=== PATIENT | male | born 1960 | race Two or more races ===

== ENCOUNTER 2018-07-25 13:15 | Inpatient (IN) | payer MEDICAID | END 2018-07-30 14:45 | disposition home or self-care (01) | LOC: ER 13:15 → WEST WING 07-26 00:38 → OVERFLOW 15:28 | PROC: 047L3Z1 Dilation of Left Femoral Artery using Drug-Coated Balloon, Percutaneous Approach (ICD-10-PCS; principal; 2018-07-29 12:25) | DX: L03.90 Cellulitis, unspecified (principal); E11.52 Type 2 diabetes mellitus with diabetic peripheral angiopathy with gangrene; E11.21 Type 2 diabetes mellitus with diabetic nephropathy; E44.0 Moderate protein-calorie malnutrition; E11.621 Type 2 diabetes mellitus with foot ulcer; I25.10 Atherosclerotic heart disease of native coronary artery without angina pectoris; Z95.5 Presence of coronary angioplasty implant and graft; Z87.891 Personal history of nicotine dependence; I10 Essential (primary) hypertension; Z89.511 Acquired absence of right leg below knee; Z89.412 Acquired absence of left great toe; N39.0 Urinary tract infection, site not specified ==

== ENCOUNTER 2018-09-10 23:38 | Inpatient (IN) | payer MEDICAID ==
[~2018-09-10] VITALS: Ht 167.6 cm; Wt 62.0 kg
[~2018-09-10 23:38] MED LIST: ASPI-378 PO; GLIP-115 PO; LISI2.5T47 PO; METF-370 PO; METO25TA5 PO
[2018-09-10] MEDS ORDERED: ACETAMINOPHEN 325 MG TAB PO ONE (23:51)
[2018-09-11] MEDS ORDERED: SODIUM CHLORIDE 0.9% 1,000 ML IVB ONE (00:32)
[2018-09-11 01:03] LABS: Urine Bacteria MOD /hpf (None Seen); Urine Blood 2+ /uL (Negative); Urine Hyaline Cast FEW /lpf (0 - 2); Urine Mucus FEW (None Seen); Urine Specific Gravity 1.014 (1.001-1.035); Urine WBC 3 /hpf (0 - 3)
[2018-09-11 02:01] LABS: Basophils # (auto) 0.1 uL; Basophils % (auto) 0.5 % (0.0-2.0); Eosinophils # (auto) 0 uL; Eosinophils % (auto) 0.1 % (0.0-7.0); Hematocrit 33.4 % (41.0-53.0); Hemoglobin 11.1 g/dL (13.5-17.5); Lymphocytes # (auto) 0.9 uL; Lymphocytes % (auto) 7.9 % (10.0-50.0); Mean Corpuscular Hemoglobin 28.4 pg (28.0-32.0); Mean Corpuscular Hgb Conc. 33.1 g/dL (32.0-36.0); Mean Corpuscular Volume 85.8 fL (80.0-100.0); Monocytes # (auto) 0.7 uL; Monocytes % (auto) 6.4 % (0.0-12.0); Neutrophils # (auto) 9.5 uL; Neutrophils % (auto) 85.1 % (37.0-80.0); Platelet Count (auto) 155 10^3/uL (140-450); Red Blood Cells 3.89 10^6/uL (4.5-5.90); Red Cell Distribution Width 16.5 % (11.8-14.3); White Blood Cell 11.2 10^3/uL (4.4-10.8)
[2018-09-11 02:13] LABS: Prothrombin Time 10.7 sec (9.27-12.13)
[2018-09-11 02:16] LABS: Albumin 2.8 g/dL (3.4-5.0); BUN/Creatinine Ratio 13.4; Calcium 8.2 mg/dL (8.5-10.1); Magnesium 2.1 mg/dL (1.6-2.6); Potassium 3.7 mmol/L (3.5-5.1)
[2018-09-11 02:19] LABS: Bilirubin, Total 0.4 mg/dL (0.2-1.0); Total Protein 7.5 g/dL (6.4-8.2)
[2018-09-11 02:38] LABS: CRP High Sensitivity 9.6 mg/dL (< 0.3)
[2018-09-11] MEDS ORDERED: PIPERACILLIN-TAZOB 3.375GM 100 ML IV ONE (02:45)
[2018-09-11] MEDS ORDERED: ACETAMINOPHEN 500 MG TAB PO PRN (05:00)
[2018-09-11] MEDS ORDERED: ONDANSETRON HCL 4 MG/2 ML VIAL IV PRN (05:00)
[2018-09-11] MEDS ORDERED: DEXTROSE (50%) 50ML SYRG IV PRN (05:00)
[2018-09-11] MEDS ORDERED: VANCOMYCIN PER PHARMACY 0 MG IV SCH (05:15)
[2018-09-11] MEDS ORDERED: ACETAMINOPHEN 325 MG TAB PO ONE (05:45)
[2018-09-11] MEDS ORDERED: VANCOMYCIN 1GM/250ML 250 ML IV ONE (06:15)
[2018-09-11] MEDS: ACCU-CHEK COMFORT CURVE STRIP VI SCH ×4 (06:31→21:51)
[2018-09-11] MEDS: InsuLIN REG 1unit/0.01ml Soln (100units/ml) SC SCH ×4 (06:34→21:51)
[2018-09-11 07:23] VITALS: BP 147/64
[2018-09-11 09:00] VITALS: BP 130/60
[2018-09-11] MEDS: CLOPIDOGREL BISULFATE 75 MG TAB PO SCH (09:51)
[2018-09-11] MEDS: ASPirin-EC 81 mg tab PO SCH (09:51)
[2018-09-11] MEDS: LISINOPRIL 5 MG TAB PO SCH (09:52)
[2018-09-11] MEDS: METOPROLOL TARTRATE 25 MG TAB PO SCH (09:52)
[2018-09-11 11:49] VITALS: BP 130/60
[2018-09-11 13:00] VITALS: BP 132/65
[2018-09-11 17:00] VITALS: BP 92/55
[2018-09-11] MEDS: VANCOMYCIN 1GM/250ML 250 ML IV SCH (17:59)
[2018-09-11 21:30] VITALS: BP 115/64
[2018-09-11] MEDS: HYDROcodone-ACET 5/325MG TAB PO PRN (21:32)
[2018-09-12 04:30] VITALS: BP 139/70
[2018-09-12] MEDS: VANCOMYCIN 1GM/250ML 250 ML IV SCH ×3 (05:45→18:17)
[2018-09-12] MEDS: InsuLIN REG 1unit/0.01ml Soln (100units/ml) SC SCH ×4 (06:05→22:24)
[2018-09-12] MEDS: ACCU-CHEK COMFORT CURVE STRIP VI SCH ×4 (06:05→22:24)
[2018-09-12 07:38] LABS: Basophils # (auto) 0 uL; Basophils % (auto) 0.5 % (0.0-2.0); Eosinophils # (auto) 0.2 uL; Eosinophils % (auto) 2.1 % (0.0-7.0); Hematocrit 32.4 % (41.0-53.0); Hemoglobin 10.8 g/dL (13.5-17.5); Lymphocytes % (auto) 18.8 % (10.0-50.0); Mean Corpuscular Hemoglobin 28.6 pg (28.0-32.0); Mean Corpuscular Hgb Conc. 33.3 g/dL (32.0-36.0); Monocytes % (auto) 9.1 % (0.0-12.0); Neutrophils # (auto) 7.6 uL; Neutrophils % (auto) 69.5 % (37.0-80.0); Platelet Count (auto) 160 10^3/uL (140-450); Red Blood Cells 3.76 10^6/uL (4.5-5.90); Red Cell Distribution Width 16.1 % (11.8-14.3); White Blood Cell 10.9 10^3/uL (4.4-10.8)
[2018-09-12 07:52] LABS: Calcium 8.1 mg/dL (8.5-10.1); Potassium 3.8 mmol/L (3.5-5.1)
[2018-09-12 07:54] LABS: BUN/Creatinine Ratio 16.4
[2018-09-12 09:00] VITALS: BP 103/36
[2018-09-12] MEDS: ASPirin-EC 81 mg tab PO SCH (09:26)
[2018-09-12] MEDS: Glucerna Carbsteady SHAKE Vanilla 8oz PO SCH ×4 (09:26→18:17)
[2018-09-12] MEDS: METOPROLOL TARTRATE 25 MG TAB PO SCH (09:26)
[2018-09-12] MEDS: cefTRIAXone 1GM/50ML D5W 50 ML IV SCH (09:26)
[2018-09-12] MEDS: LISINOPRIL 5 MG TAB PO SCH (09:27)
[2018-09-12] MEDS: CLOPIDOGREL BISULFATE 75 MG TAB PO SCH (09:27)
[2018-09-12 12:50] VITALS: BP 107/54
[2018-09-12 16:30] VITALS: BP 106/59
[2018-09-12] MEDS ORDERED: ATOR40TA52 PO (17:06)
[2018-09-12] MEDS ORDERED: OMEP20TA PO (17:06)
[2018-09-12] MEDS ORDERED: MECL1TAB42 PO (17:06)
[2018-09-12] MEDS ORDERED: TRAM50TA2 PO (17:06)
[2018-09-12] MEDS ORDERED: ISOS10TA45 PO (17:06)
[2018-09-12] MEDS ORDERED: GABA100C9 PO (17:06)
[2018-09-12] MEDS ORDERED: CLOP75TA28 PO (17:06)
[2018-09-12] MEDS ORDERED: FOLI1TAB6 PO (17:06)
[2018-09-12] MEDS: HYDROcodone-ACET 5/325MG TAB PO PRN ×2 (19:41→23:32)
[2018-09-12 22:00] VITALS: BP 143/73
[2018-09-13 05:45] VITALS: BP 120/60
[2018-09-13] MEDS: ACCU-CHEK COMFORT CURVE STRIP VI SCH ×2 (05:57→11:30)
[2018-09-13] MEDS: InsuLIN REG 1unit/0.01ml Soln (100units/ml) SC SCH ×2 (05:57→12:04)
[2018-09-13 06:36] LABS: Basophils # (auto) 0 uL; Basophils % (auto) 0.5 % (0.0-2.0); Eosinophils # (auto) 0.5 uL; Eosinophils % (auto) 5.7 % (0.0-7.0); Hematocrit 31.6 % (41.0-53.0); Hemoglobin 10.5 g/dL (13.5-17.5); Lymphocytes # (auto) 2.2 uL; Lymphocytes % (auto) 23.6 % (10.0-50.0); Mean Corpuscular Hemoglobin 28.7 pg (28.0-32.0); Mean Corpuscular Hgb Conc. 33.1 g/dL (32.0-36.0); Mean Corpuscular Volume 86.9 fL (80.0-100.0); Monocytes # (auto) 0.6 uL; Monocytes % (auto) 6.8 % (0.0-12.0); Neutrophils # (auto) 5.9 uL; Neutrophils % (auto) 63.4 % (37.0-80.0); Platelet Count (auto) 179 10^3/uL (140-450); Red Blood Cells 3.64 10^6/uL (4.5-5.90); Red Cell Distribution Width 16.4 % (11.8-14.3); White Blood Cell 9.3 10^3/uL (4.4-10.8)
[2018-09-13 06:53] LABS: BUN/Creatinine Ratio 18.8; Calcium 8.4 mg/dL (8.5-10.1); Potassium 4.5 mmol/L (3.5-5.1)
[2018-09-13] MEDS: Glucerna Carbsteady SHAKE Vanilla 8oz PO SCH ×2 (08:38→12:04)
[2018-09-13] MEDS: cefTRIAXone 1GM/50ML D5W 50 ML IV SCH (08:38)
[2018-09-13] MEDS: LISINOPRIL 5 MG TAB PO SCH (08:39)
[2018-09-13] MEDS: METOPROLOL TARTRATE 25 MG TAB PO SCH (08:39)
[2018-09-13] MEDS: CLOPIDOGREL BISULFATE 75 MG TAB PO SCH (08:39)
[2018-09-13] MEDS: ASPirin-EC 81 mg tab PO SCH (08:39)
[2018-09-13 09:00] VITALS: BP 140/75
[2018-09-13] MEDS ORDERED: VANCOMYCIN 750 MG in D5W 5% 250 ML IV SCH (09:00)
[2018-09-13 10:32] VITALS: BP 140/75
[2018-09-13 13:00] VITALS: BP 118/64
== END 2018-09-13 13:05 | disposition home health service (06) | DRG 720 ==
LOC: EDBD 23:38 → ER 23:38 → TELE 09-11 05:09 → TELE-CENTR 09-11 07:52
PROVIDERS: ADMIT Nurse Practitioner Family; ATTEND Internal Medicine
DX: A41.9 Sepsis, unspecified organism (principal); E11.21 Type 2 diabetes mellitus with diabetic nephropathy; E11.51 Type 2 diabetes mellitus with diabetic peripheral angiopathy without gangrene; E44.0 Moderate protein-calorie malnutrition; E87.1 Hypo-osmolality and hyponatremia; N39.0 Urinary tract infection, site not specified; E78.5 Hyperlipidemia, unspecified; I12.9 Hypertensive chronic kidney disease with stage 1 through stage 4 chronic kidney disease, or unspecified chronic kidney disease; D63.8 Anemia in other chronic diseases classified elsewhere; E11.22 Type 2 diabetes mellitus with diabetic chronic kidney disease; N18.2 Chronic kidney disease, stage 2 (mild); E78.00 Pure hypercholesterolemia, unspecified; I25.10 Atherosclerotic heart disease of native coronary artery without angina pectoris; N13.9 Obstructive and reflux uropathy, unspecified; Z68.21 Body mass index [BMI] 21.0-21.9, adult; Z88.5 Allergy status to narcotic agent; Z89.511 Acquired absence of right leg below knee; Z89.422 Acquired absence of other left toe(s); Z79.82 Long term (current) use of aspirin; Z89.412 Acquired absence of left great toe; Z79.84 Long term (current) use of oral hypoglycemic drugs; Z79.899 Other long term (current) drug therapy
CPT/HCPCS: 36415; 36600; 71045; 73630; 76775; 80048; 80053; 80202; 81001; 82010; 82805; 82962; 83036; 83605; 83690; 83735; 84154; 84443; 85025; 85610; 85730; 86141; 87040; 87086; 93005; 94761; 96361; 96365; 96367; A6257; G0378; J0696; J1815; J2543; J7060